=== PATIENT | female | born 1965 | race Caucasian/White ===

== ENCOUNTER 2023-06-21 05:09 | Observation (INO) ==
--- NOTE | 2023-05-24 16:03 | PAT Medication Instructions ---
Medication Instructions Date of Service May 24, 2023 Home Medications Medication Instructions Recorded sumatriptan succinate 100 mg tablet 100 mg PO .COMPLEX #60 tabs 12/16/22 tamsulosin 0.4 mg capsule (Flomax) 0.4 mg PO DAILY PRN kidney stone 12/16/22 #30 caps amitriptyline 25 mg tablet 25 mg PO HS #90 tabs 02/15/23 cyclobenzaprine 5 mg tablet 5 mg PO TID PRN muscle spasm #60 02/15/23 tabs diclofenac potassium 50 mg tablet 50 mg PO BID PRN pain #60 tabs 02/15/23 metoprolol tartrate 25 mg tablet 25 mg PO BID #180 tabs 02/15/23 metoprolol tartrate 50 mg tablet 50 mg PO BID #180 tabs 02/15/23 sumatriptan succinate 100 mg tablet 100 mg PO .COMPLEX tamsulosin 0.4 mg capsule (Flomax) 0.4 mg PO DAILY PRN kidney stone amitriptyline 25 mg tablet 25 mg PO HS cyclobenzaprine 5 mg tablet 5 mg PO TID PRN muscle spasm diclofenac potassium 50 mg tablet 50 mg PO BID PRN pain metoprolol tartrate 25 mg tablet 25 mg PO BID metoprolol tartrate 50 mg tablet 50 mg PO BID amlodipine 5 mg tablet 5 mg PO QAM atorvastatin 40 mg tablet 20 mg PO QAM gabapentin 300 mg capsule 300 mg PO TID ASK your surgeon for instructions diclofenac potassium 50 mg tablet 50 mg PO BID PRN pain Take morning of surgery With a small sip of water, OTHERWISE NOTHING TO EAT OR DRINK AFTER MIDNIGHT: sumatriptan succinate 100 mg tablet 100 mg PO .COMPLEX (if needed) tamsulosin 0.4 mg capsule (Flomax) 0.4 mg PO DAILY PRN kidney stone (if needed) cyclobenzaprine 5 mg tablet 5 mg PO TID PRN muscle spasm (if needed) metoprolol tartrate 25 mg tablet 25 mg PO BID metoprolol tartrate 50 mg tablet 50 mg PO BID amlodipine 5 mg tablet 5 mg PO QAM atorvastatin 40 mg tablet 20 mg PO QAM gabapentin 300 mg capsule 300 mg PO TID Take evening before surgery sumatriptan succinate 100 mg tablet 100 mg PO .COMPLEX (if needed) tamsulosin 0.4 mg capsule (Flomax) 0.4 mg PO DAILY PRN kidney stone (if needed) amitriptyline 25 mg tablet 25 mg PO HS cyclobenzaprine 5 mg tablet 5 mg PO TID PRN muscle spasm (if needed) metoprolol tartrate 25 mg tablet 25 mg PO BID metoprolol tartrate 50 mg tablet 50 mg PO BID gabapentin 300 mg capsule 300 mg PO TID Other Notes If you have any questions please call us at [phone] or [phone] or [phone] or [phone]
--- NOTE | 2023-05-30 13:44 | Anesthesiology Consultation ---
Date of Service May 30, 2023 Assessment & Plan (1) Encounter for pre-operative examination: - Infectious disease screening: Per assessment on 05/30/23: No known infectious disease contacts or current infectious disease symptoms. No noted recent Covid positive test result. - Patient acceptable risk for surgery pending surgeon-ordered PCP preop evaluation ([facility], later [facility]). Chart Review Chart Review: Patient seen in Pre Admission Testing History Surgery Operation Date: 06/21/23 12:50 Proposed Procedures p C5-C6 and C6-C7 Anterior Cervical Discectomy and Fusion, Spinal Cord Monitoring - Clifford Falk DO Height/Weight Height: 5 ft 6 in Weight: 84.9 kg Allergies Allergy/AdvReac Type Severity Reaction Status Date / Time erythromycin base Allergy Intermediate Rash Verified 05/30/23 11:26 Macrolide Antibiotics Allergy Mild GI upset Verified 05/30/23 11:26 amoxicillin Allergy Unknown Rash Verified 05/30/23 11:26 clarithromycin AdvReac Unknown GI symptoms Verified 05/30/23 13:40 Medications Home Medications Medication Instructions Recorded Confirmed Last Taken sumatriptan succinate 100 mg tablet 100 mg PO .COMPLEX #60 tabs 12/16/22 05/24/23 Unknown tamsulosin 0.4 mg capsule (Flomax) 0.4 mg PO DAILY PRN kidney stone 12/16/22 05/24/23 Unknown #30 caps amitriptyline 25 mg tablet 25 mg PO HS #90 tabs 02/15/23 05/24/23 Unknown cyclobenzaprine 5 mg tablet 5 mg PO TID PRN muscle spasm #60 02/15/23 05/24/23 Unknown tabs diclofenac potassium 50 mg tablet 50 mg PO BID PRN pain #60 tabs 02/15/23 05/24/23 Unknown metoprolol tartrate 25 mg tablet 25 mg PO BID #180 tabs 02/15/23 05/24/23 Unknown metoprolol tartrate 50 mg tablet 50 mg PO BID #180 tabs 02/15/23 05/24/23 Unknown amlodipine 5 mg tablet 5 mg PO QAM 05/24/23 05/24/23 Unknown atorvastatin 40 mg tablet 20 mg PO QAM 05/24/23 05/24/23 Unknown gabapentin 300 mg capsule 300 mg PO TID 05/24/23 05/24/23 Unknown Past Medical History Medical History (Updated 05/30/23 @ 14:21 by Meme Mcadams) DDD (degenerative disc disease), cervical Dyslipidemia Gastroparesis History of atrial fibrillation Episode 15+ years ago > unremarkable subsequent cardiac workup including stress test per patient, cardiology initiated/rec'd BB (AC not rec'd) and advised to f/u PRN per patient. No known recurrences/issues since. NSR on preop ECG 05/30/23. History of kidney stones History of migraine Hypertension Osteoarthritis Tinnitus Past Family History Family History Father Diabetes Myocardial infarction COPD (chronic obstructive pulmonary disease) Hypertension Aunt Breast cancer Grandmother (Paternal) Diabetes Grandfather (Paternal) Diabetes Mother Hypercholesteremia Sister Non-Hodgkin lymphoma Slow to wake up after anesthesia Denies family history of Ovarian cancer Prostate cancer Colorectal cancer Past Surgical History Surgical History H/O shoulder surgery Right H/O wrist surgery Right History of colonoscopy History of D&C History of esophagogastroduodenoscopy (EGD) History of mandibular surgery Hx TMJ History of total abdominal hysterectomy and bilateral salpingo-oophorectomy History of wisdom tooth extraction Past Anesthesia History No Hx of Anesthesia Complications * Sister: slow to wake History of PONV No Hx of PONV and Hx of Motion Sickness STOP BANG Total 4 Social History Smoking Status: Current some day smoker Do You Dip or Chew Tobacco: No Smoking End Date: Quit early 05/2023, Hx tobacco use x 30+ years Hx Alcohol Use: No (RARE intake. ) Hx Substance Use: No substance use type: does not use Review of Systems Hx snoring. No witnessed apneic events. Patient denies chest pain, shortness of breath, dyspnea on exertion, reflux, cough, wheezing, palpitations. Physical Exam Vital Signs BP 130/85 P 69 TEMP 97.7 SP02 96%RA RESP 16 Physical Decreased cervical extension range of motion. Full TMJ range of motion. TMD 3.5 finger breaths Mallampati Score 2 Dentition: missing sides/molars, + caps Lungs: clear throughout to auscultation Cardiac: regular rate and rhythm, no murmurs noted Spine: normal Carotid arteries: negative bruit Extremities: no LE edema Lab Results Anesthesia Preop Results Results Anesthesia Widget: WBC 6.72 K/ul (4.8-10.8) 05/30/23 Hgb 14.1 g/dl (12.0-16.0) 05/30/23 Hct 42.5 % (37.0-47.0) 05/30/23 Plt 213 K/uL (130-400) 05/30/23 Na 140 mmol/L (136-145) 05/30/23 K 3.8 mmol/L (3.5-5.1) 05/30/23 Cl 108 mmol/L (98-107) H 05/30/23 CO2 28 mmol/L (21-32) 05/30/23 BUN 13 mg/dl (6-23) 05/30/23 Creat 0.71 mg/dl (0.6-1.2) 05/30/23 Glucose Level 90 mg/dl (70-99(Fasting)) 05/30/23 PT 11.1 Seconds (9.0-12.0) 05/30/23 PTT 27 Seconds (21-31) 05/30/23 INR 1.0 (0.9-1.1) 05/30/23 Urine Color Yellow 05/30/23 Urine Appearance Cloudy (Clear) A 05/30/23 Urine pH 5.5 (4.5-7.5) 05/30/23 Urine Specific [place] 1.026 (1.000-1.030) 05/30/23 Urine Protein Negative (Negative) 05/30/23 Urine Glucose (UA) Negative (Negative) 05/30/23 Urine Ketones Negative (Negative) 05/30/23 Urine Blood 1+ (Negative) H 05/30/23 Urine Nitrite Negative (Negative) 05/30/23 Urine Bilirubin Negative (Negative) 05/30/23 Urine Urobilinogen Negative (Negative) 05/30/23 Urine Leukocyte Esterase 2+ (Negative) H 05/30/23 Urine WBC (Auto) >30 /hpf (0-5) H 05/30/23 Urine RBC (Auto) 5-10 /hpf (0-4) H 05/30/23 Urine Hyaline Casts (Auto) 1-5 /lpf (0-5) 05/30/23 Urine Epithelial Cells (Auto) >30 /lpf (0-5) H 05/30/23 Urine Bacteria (Auto) Negative (Negative) 05/30/23 Blood Type O Positive 05/30/23 Antibody Screen NEGATIVE 05/30/23 Testing Laboratory Results Urine culture (05/30/23)- preliminary report with pin-point growth present, reincubating (surgeon's office made aware) Electrocardiogram Date: 05/30/23 NSR at 63bpm. "Normal ECG" Chest X-Ray Date: 05/30/23 Findings: + NAD
[2023-06-21] MEDS: CeleBREX 200 MG CAP PO SCH (05:48)
[2023-06-21] MEDS: GABAPENTIN 600 MG DOSE PO SCH (05:48)
[2023-06-21] MEDS: LR 15ML/HR IV SCH (05:48)
[2023-06-21] MEDS: ACETAMINOPHEN 500 MG TAB PO SCH (05:48)
[2023-06-21] MEDS: VANCOMYCIN HCL 1,250 MG in SODIUM CHLORIDE 0.9% 250 ML IV SCH (05:49)
[2023-06-21] MEDS: LR 60ML/HR IV SCH (05:50)
[2023-06-21] MEDS ORDERED: DEXAMETHASONE SOD INJ 4 MG/ML VIAL ONE (06:49)
[2023-06-21] MEDS ORDERED: PROPOFOL IV EMULSION 10 MG/ML 20 ML VIAL IV ONE (06:49)
[2023-06-21] MEDS ORDERED: ONDANSETRON INJ 2 MG/ML 2 ML VIAL ONE (06:49)
[2023-06-21] MEDS ORDERED: ROCURONIUM BROMIDE 10 MG/ML 5 ML VIAL IV ONE (06:49)
[2023-06-21] MEDS ORDERED: LIDOCAINE 2% 2 ML VIAL/AMP(20MG/ML) INFIL ONE (06:49)
[2023-06-21] MEDS ORDERED: GLYCOPYRROLATE 0.2 MG/ML VIAL ONE (06:49)
[2023-06-21] MEDS ORDERED: MIDAZOLAM HCL 1 MG/ML 2ML VIAL ONE (06:50)
[2023-06-21] MEDS ORDERED: fentaNYL citrate PF 100 MCG/2 ML VIAL ONE (06:50)
[2023-06-21] MEDS ORDERED: SUGAMMADEX SODIUM 200 MG/2 ML VIAL IV ONE (06:55)
[2023-06-21] MEDS ORDERED: ePHEDrine sulfate 50 MG/ML AMP IV PRN (06:57)
[2023-06-21] MEDS ORDERED: ATROPINE SULFATE 0.1 MG/ML 10ML SYR IV PRN (06:57)
[2023-06-21] MEDS ORDERED: ONDANSETRON INJ 2 MG/ML 2 ML VIAL IV PRN (06:57)
[2023-06-21] MEDS ORDERED: PROMETHAZINE HCL 6.25 MG in SODIUM CHLORIDE 0.9% 50 ML IV PRN (06:57)
--- NOTE | 2023-06-21 07:43 | History & Physical Bridge Note ---
Date of Service June 21, 2023 History & Physical Bridge Note I have examined the patient, reviewed the History & Physical and in the interval since the performance of the History & Physical I have noted the following changes of clinical significance: no changes noted
--- NOTE | 2023-06-21 07:44 | History & Physical Report ---
Date of Service June 21, 2023 Assessment & Plan (1) Cervical radiculopathy: Plan: Anterior cervical discectomy and fusion C5-C6 and C6-C7 History of Present Illness Chief Complaint: Neck and arm pain Primary Care Provider: Krista Marcum DO This is a 57-year-old female presents chronic system Pain of failed course of nonoperative care is here for surgical invention. Allergies Allergy/AdvReac Type Severity Reaction Status Date / Time erythromycin base Allergy Intermediate Rash Verified 06/21/23 05:36 Macrolide Antibiotics Allergy Mild GI upset Verified 06/21/23 05:36 amoxicillin Allergy Unknown Rash Verified 06/21/23 05:36 clarithromycin AdvReac Unknown GI symptoms Verified 06/21/23 05:36 Home Medications Medication Instructions Recorded Confirmed Type sumatriptan succinate 100 mg tablet 100 mg PO .COMPLEX #60 tabs 12/16/22 06/21/23 Rx tamsulosin 0.4 mg capsule (Flomax) 0.4 mg PO DAILY PRN kidney stone 12/16/22 06/21/23 Rx #30 caps amitriptyline 25 mg tablet 25 mg PO HS #90 tabs 02/15/23 06/21/23 Rx cyclobenzaprine 5 mg tablet 5 mg PO TID PRN muscle spasm #60 02/15/23 06/21/23 Rx tabs diclofenac potassium 50 mg tablet 50 mg PO BID PRN pain #60 tabs 02/15/23 06/21/23 Rx metoprolol tartrate 25 mg tablet 25 mg PO BID #180 tabs 02/15/23 06/21/23 Rx metoprolol tartrate 50 mg tablet 50 mg PO BID #180 tabs 02/15/23 06/21/23 Rx amlodipine 5 mg tablet 5 mg PO QAM 05/24/23 06/21/23 History atorvastatin 40 mg tablet 20 mg PO QAM 05/24/23 06/21/23 History gabapentin 300 mg capsule 300 mg PO TID 05/24/23 06/21/23 History Past Med/Surg History Medical History DDD (degenerative disc disease), cervical Osteoarthritis History of kidney stones Tinnitus History of migraine History of atrial fibrillation Episode 15+ years ago > unremarkable subsequent cardiac workup including stress test per patient, cardiology initiated/rec'd BB (AC not rec'd) and advised to f/u PRN per patient. No known recurrences/issues since. NSR on preop ECG 05/30/23. Dyslipidemia Gastroparesis Hypertension Surgical History History of D&C History of esophagogastroduodenoscopy (EGD) History of colonoscopy History of wisdom tooth extraction History of total abdominal hysterectomy and bilateral salpingo-oophorectomy H/O wrist surgery Right H/O shoulder surgery Right History of mandibular surgery Hx TMJ Family History Father Diabetes Myocardial infarction COPD (chronic obstructive pulmonary disease) Hypertension Aunt Breast cancer Grandmother (Paternal) Diabetes Grandfather (Paternal) Diabetes Mother Hypercholesteremia Sister Non-Hodgkin lymphoma Slow to wake up after anesthesia Denies family history of Ovarian cancer Prostate cancer Colorectal cancer Social History Smoking Status: Current some day smoker Tobacco Type: Cigarettes Age Started Using Tobacco: 22; Smoking End Date: Quit early 05/2023, Hx tobacco use x 30+ years; Second Hand Exposure: Yes; Do You Dip or Chew Tobacco: No; Tobacco Cessation Education Requested by Patient: No Hx Alcohol Use: No (RARE intake. ) Hx Substance Use: No Preferred Language: Italian Communication Ability: Effective Visual Impairment: No Limitations Hearing Ability: Normal Manager Qa Required: No Beliefs That Will Affect Care: None marital status: Current Living Situation: Alone current occupational status: employed current occupation: DME supplier. How many Children do You have: 3 How many Children do You have Comment: ONE CHILD Feels Safe at Home: Yes Safety Concerns: Feels Safe At This Time Childhood Exposure to Second-Hand Smoke: No Diet: regular Diet Comment: regular caffeine: Yes (coffee x 1 per day.) during the past year weight has: remained stable Dental Care, Regularly: Yes Physical Activity Frequency: Daily Seatbelt Use: always Sunscreen Use: Yes Assistive Devices: Glasses Physical Exam Physical Exam: Patient is alert and oriented Heart regular rhythm Lungs clear Results & Data Results & Data Vital Signs (Past 12 Hours) Vital Signs Temp Pulse Resp BP Pulse Ox O2 Del Method 06/21/23 05:42 36.7 C 80 20 147/95 H 95 Room Air
[2023-06-21] MEDS: ceFAZolin 330 MG/ML 1 GM VIAL ONE (08:30)
--- OUTSIDE RECORDS SUMMARY | 2023-06-21 08:59 | External Medical Summary | Summary of Care ---
Author Name Unknown Organization [facility] Address [address] [place] [address] Phone [phone] Care Team Providers Care Condemnation Engineer Name Role Phone Misa Castanon MD Primary Care Provi tanya Reason for Visit * Reason Comments Pre-Op Testing Patient is here toda y for pre-op clearance for spine surgery with Dr. Marshall Falk ([facility]) on 06/21/2023. Patient says she already had lab work and EKG done at her pre-op for [facility]. Encounter Details Date Type Department Care Team (Late st Contact Info) Description 06/10/2023 8:40 AM EDT Office Visit [address] [phone] Misa Castanon MD [address] [place] [phone] Preop examination*; DDD (degenerative disc disease), cervical; Cervical radiculopathy; Myelomalacia of cervical cord (HCC); HTN, goal below 140/90 Allergies Active Allergy Reactions Criticality Noted Date Comments Amoxicillin 06/23/2006 Rash Erythromycin 06/23/2006 documented as of this encounter (statuses as of 06/14/2023) Medications Medication Sig Dispensed Refills Start Date End Date Status IMITREX 50 MG PO TABSIndications:Art myah with aura One pill by mouth at onset of migraine. May repeat every 2 hours but not more than 4 tablets in 24 hours. 6 Tab 2 11/13/2013 Active LIPITOR 10 MG PO TABSIndications:HTN , goal below 130/80 one tab by mouth daily 30 Tab 5 11/22/2013 Active metoprolol tartrate (LOPRESSOR) 50 MG TabletIndications:H TN, goal below 130/80 TAKE ONE TABLET TWO TIMES DAILY ALONG WITH 25MG 180 Tab 1 03/03/2015 Active metoprolol (LOPRESSOR) 25 MG TabletIndications:H TN, goal below 140/90 1 TABLET TWICE DAILY TAKEN WITH THE 50MG PILLS. 180 Tab 1 03/03/2015 Active amLODIPine (NORVASC) 5 MG Tablet 1 TABLET DAILY 90 Tab 1 06/05/2015 Active Tamsulosin HCl 0.4 MG Oral Capsule (Flomax) Take 1 Capsule by mouth daily as needed (kidney stones). 0 Active Acetaminophen 500 MG Oral Tablet (Tylenol)Indication s:DDD (degenerative disc disease), cervical,Cervical radiculopathy Take 2 Tablets by mouth in the morning and 2 Tablets at noon and 2 Tablets in the evening. 180 Tablet 3 02/22/2023 Active Gabapentin 300 MG Oral Capsule (Neurontin)Indicati ons:Cervical radiculopathy,DDD (degenerative disc disease), cervical Take 1 Capsule by mouth in the morning and 1 Capsule at noon and 1 Capsule before bedtime. 90 Capsule 3 04/13/2023 Active Cyclobenzaprine HCl 10 MG Oral Tablet (Flexeril)Indicatio ns:Spasm of muscle Take 1 Tablet by mouth 3 times a day as needed for Pain, Severe. 60 Tablet 2 04/15/2023 Active Diclofenac Potassium 50 MG Oral Tablet Take 1 Tablet by mouth in the morning and 1 Tablet before bedtime. 0 06/10/2023 Discontinue d(Patient preference/ discontinua tion) Benzonatate 100 MG Oral CapsuleIndications: Viral URI Take 1 Capsule by mouth 3 times a day as needed for Cough. 30 Capsule 1 04/13/2023 06/10/2023 Discontinue d(Medicatio n List Clean Up) guaiFENesin ER 600 MG Oral Tablet Extended Release 12 Hour (Mucinex)Indication s:Viral URI Take 1 Tablet by mouth 2 times a day as needed for Congestion. Take with plenty of water. Do not cut, crush or chew 40 Tablet 2 04/13/2023 06/10/2023 Discontinue d(Medicatio n List Clean Up) predniSONE 10 MG Oral Tablet (Deltasone)Indicati ons:Cervical radiculopathy,Myelo malacia of cervical cord (HCC) Take 5 tabs for 2 days, 4 tabs for 2 days, 3 tabs for 2 days, 2 tabs for 2 days 1 tab for 2 days 30 Tablet 0 04/15/2023 06/10/2023 Discontinue d(Medicatio n List Clean Up) documented as of this encounter (statuses as of 06/14/2023) Active Problems Problem Noted Date Diagnosed Date Myelomalacia of cervical cord 04/13/2023 Cervical radiculopathy 04/13/2023 History of nephrolithiasis 02/22/2023 DDD (degenerative disc disease), cervical 2022 Lumbar degenerative disc disease 02/22/2023 Gastroparesis 02/22/2023 Dyslipidemia, goal LDL below 100 02/18/2014 HTN, goal below 140/90 07/14/2010 Migraine with aura 10/22/2008 documented as of this encounter (statuses as of 06/14/2023) Resolved Problems Problem Noted Date Diagnosed Date Resolved Date Palpitations 08/17/2010 02/22/2023 Gastritis and gastroduodenitis 10/08/2008 02/22/2023 Atrial fibrillation 02/19/20 14 documented as of this encounter (statuses as of 06/14/2023) Immunizations Name Administration Dates Next Due Pneumococcal Polysaccharide PPV23 (Pneumovax) 09/19/2008(Deferred: Patient Refused) Seasonal Influenza, Split, I IV3, With Preserve, Inj 02/11/2014 TDAP (age 11 and older)(Adacel) 09/19/2008 documented as of this encounter Social History Tobacco Use Types Packs/Day Years Used Date Smoking Tobacco: Former Cigarettes 0.3 16 Smokeless Tobacco: Never Tobacco Cessation:Counseling Given: Not Answered Comments:07/30/10 down to 3 cigaretts a day Alcohol Use Standard Drinks/Week Comments Not Currently 0 (1 standard drink = 0.6 oz pur e alcohol) 1 glass of wine occ Hunger Vital Sign Answer Date Recorded Within the past 12 months, y ou worried that your food would run out before you got the money to buy more. Patient declined Within the past 12 months, t he food you bought just didn't last and you didn't have money to get more. Patient declined 06/2023 Sex and Gender Information Value Date Recorded Sex Assigned at Female 03/31/2023 9:54 AM EST Gender Identity Female 03/31/2023 9:54 AM EST Sexual Orientation Straight 03/31/2023 9: 54 AM EST Job Start Date Occupation Industry Not on file Not on file Not on file documented as of this encounter Last Filed Vital Signs Vital Sign Reading Time Taken Comments Blood Pressure 126/84 06/10/2023 9:09 AM EDT Pulse 54 06/10/2023 8:49 AM EDT Temperature 36.4 C (97.5 F) 06/10/2023 8:49 AM ED T Respiratory Rate 20 06/10/2023 8:49 AM EDT Oxygen Saturation 99% 06/10/2023 8:49 AM EDT Inhaled Oxygen Concentration - - Weight 85.6 kg (188 lb 12.8 oz) 06/10/2023 8:49 AM EDT Height 170.2 cm (5' 7") 06/10/2023 8:49 AM EDT Body Mass Index 29.57 06/10/2023 8:49 AM EDT documented in this encounter Progress Notes * Misa Castanon MD - 06/10/2023 8:40 AM EDT Images from the original note were not included. Pre-Operative Medical Evaluation Procedure Information Type of Surgery: Anterior cervical discectomy and fusion C5/6 and C6/7 Referring Physician / Surgeon: Marshall Falk MD Date of procedure: 06/21/2023 Brief History of Present Illness: 57 year old female with history of hypertension, dyslipidemia, gastroparesis, and cervical DDD and radiculopathy who presents for pre op exam. Scheduled for anterior cervical discectomy and fusion C5/6 and C6/7 on 06/21/23 with [facility] [place]. BP is well controlled on current meds. Quit smoking 3 weeks ago. Had labs, EKG, chest xray done at [facility] through [facility] Medical History Problem List: Myelomalacia of cervical cord (HCC) (04/13/2023) Cervical radiculopathy (04/13/2023) History of nephrolithiasis (02/22/2023) DDD (degenerative disc disease), cervical (02/22/2023) Lumbar degenerative disc disease (02/22/2023) Gastroparesis (02/22/2023) Dyslipidemia, goal LDL below 100 (02/18/2014) Palpitations (08/17/2010) HTN, goal below 140/90 (07/14/2010) Migraine with aura (10/22/2008) Gastritis and gastroduodenitis (10/08/2008) Atrial fibrillation (HCC) Current Medications Cyclobenzaprine HCl 10 MG Oral Tablet (Flexeril), 10 mg, Oral, TID PRN Gabapentin 300 MG Oral Capsule (Neurontin), 300 mg, Oral, TID(AM/NOON/HS) Acetaminophen 500 MG Oral Tablet (Tylenol), 1,000 mg, Oral, TID Tamsulosin HCl 0.4 MG Oral Capsule (Flomax), 0.4 mg, Oral, Daily PRN amLODIPine (NORVASC) 5 MG Tablet, 1 TABLET DAILY metoprolol (LOPRESSOR) 25 MG Tablet, 1 TABLET TWICE DAILY TAKEN WITH THE 50MG PILLS. metoprolol tartrate (LOPRESSOR) 50 MG Tablet, TAKE ONE TABLET TWO TIMES DAILY ALONG WITH 25MG LIPITOR 10 MG PO TABS, one tab by mouth daily IMITREX 50 MG PO TABS, One pill by mouth at onset of migraine. May repeat every 2 hours but not more than 4 tablets in 24 hours. Allergies: Amoxicillin and Erythromycin Past Medical History: has a past medical history of Atrial fibrillation (HCC), Benign neoplasm of colon (12/28/2010), Gastroparesis, Hypertention, malignant, with acute intensive management, Reflux esophagitis, and Temporomandibular joint disorders, unspecified. Past Surgical History: has a past surgical history that includes dilation and curettage (d&c); EGD, Flexible, w/Biopsy(07/07/06); vaginal hysterectomy (02-23-10); and Colonoscopy w/ Biopsy (Rectum) (12/28/10). Social History: reports that she has quit smoking. Her smoking use included cigarettes. She has a 4.8 pack-year smoking history. She has never used smokeless tobacco. She reports that she does not currently use alcohol. She reports that she does not use drugs. Family History: family history includes Cancer in her grandfather (maternal); Diabetes in her father and grandmother (paternal); Heart Disorder in her grandmother (paternal) and sister; No Past Hx in her none. Anesthesia History Type of Anesthesia: General Endotracheal and Caudal block Anesthesia reaction: No History of surgical complications: None Personal history of venous thromboembolic disease: None Physical Exam Vitals: 06/10/23 0849 06/10/23 0909 Temp: 36.4 C (97.5 F) Pulse: 54 Resp: 20 SpO2: 99% BP: 152/92 126/84 BMI: 29.56 Physical Exam Vitals and nursing note reviewed. Constitutional: General: She is not in acute distress. Appearance: Normal appearance. HENT: Head: Normocephalic and atraumatic. Nose: Nose normal. Mouth/Throat: Mouth: Mucous membranes are moist. Pharynx: Oropharynx is clear. Eyes: Conjunctiva/sclera: Conjunctivae normal. Cardiovascular: Rate and Rhythm: Normal rate and regular rhythm. Pulses: Normal pulses. Heart sounds: Normal heart sounds. No murmur heard. Pulmonary: Effort: Pulmonary effort is normal. No respiratory distress. Breath sounds: Normal breath sounds. Skin: General: Skin is warm and dry. Capillary Refill: Capillary refill takes less than 2 seconds. Findings: No rash. Neurological: General: No focal deficit present. Mental Status: She is alert and oriented to person, place, and time. Mental status is at baseline. Psychiatric: Mood and Affect: Mood normal. Behavior: Behavior normal. Labs reviewed and are significant for: No significant abnormalities EKG by my review is significant for: normal sinus rhythm without ST changes Surgical Risk Scoring Revised Cardiac Risk Index (RCRI) High-risk type of surgery (examples include vascular and any open intraperitoneal or intrathoracic procedures): 0=No History of ischemic heart disease (history of myocardial infarction or positive exercise test, current compliant of chest pain considered to be secondary to myocardia ischemia, use of nitrate therapy, or ECG with pathological Q waves; do not count prior coronary revascularization procedure unless one of the other criteria for ischemic heart disease is present): 0=No History of heart failure: 0=No History of cerebrovascular disease: 0=No Diabetes mellitus requiring treatment with insulin: 0=No Preoperative serum creatinine >2.0 mg/dL (177 micromol/L): 0=No Pt has revised cardiac index score of: No Risk Factors- 0.4% (95% CI: 0.1-0.8) Screening for Obstructive Sleep Apnea (STOP-BANG) Do you Snore loudly? 1=Yes Do you often feel Tired, Fatigued, or Sleep? 1=Yes Has anyone Observed you Stop Breathing or Choking/Gasping during sleep? 0=No Do you have or are you being treated for High Blood Pressure? 1=Yes BMI over 35? 0=No Age older than 50? 1=Yes Neck size large? (For males - 17 inches or larger, For females - 16 inches or larger) 0=No Male? 0=No Score 0-2:low risk GABINO, 3-4: intermediate risk of GABINO, 5-8: high risk GABINO 4 Assessment and Plan Preop examination Cleared to proceed with surgery DDD (degenerative disc disease), cervical Cervical radiculopathy Myelomalacia of cervical cord (HCC) HTN, goal below 140/90 At goal, no changes Functional Assessment They are able to walk up a flight of stairs, walk two blocks at a moderate pace, do heavy house work like vacuuming, and grocery shop. The patient's functional status is good (greater than 4 METS). 1 MET: 4 METs: 4-10 METs: Can take care of self, such as eat, dress or use the toilet. Can walk to block or go up a flight of steps. Can do heavy house work. Surgical Risk Assessment Patient is low medical risk for the listed procedure. Medication adjustments: None Additional consults or testing: None documented in this encounter Nursing Notes * Martha Beckett LPN - 06/10/2023 8:48 AM EDT The patient has been properly identified by confirmation of name and date of . Chief Complaint Patient presents with Pre-Op Testing Patient is here today for pre-op clearance for spine surgery with Dr. Marshall Falk ([facility]) on 06/21/2023. Patient says she already had lab work and EKG done at her pre-op for [facility]. Patient has been verbally educated on the need or importance of Colon Cancer Screening and Immunizations: tdap, hep B, pneumo, shingles and has declined topic(s) due to upcoming surgery. documented in this encounter Plan of Treatment Upcoming Encounters Date Type Department Care Team ([facility] st Contact Info) Description 07/13/2023 8:00 AM EDT Office Visit Family [address] [phone] Misa Castanon MD [address] [place] [phone] Health Maintenance Due Date Last Done Comments Depression Screening 1976 Hepatitis B (1 of 3 - 19+ 3-dose series) 09/28/1983 Cologuard 2009 Fecal Occult Blood Test 2009 Sigmoidoscopy 2009 Mammogram 10/09/2010 10/09/2009, 09/20/2008 Zoster Vaccines (1 of 2) 2014 Albumin/Creatinine Ratio 02/11/2017 014, 02/01/2013, 10/26/2011, Additional history exists DTaP,Tdap,and Td Vaccines (2 - Td or Tdap) 09/19/2018 09/19/2008 Lipid Panel 02/18/2019 02/18/2014, 07/14/2010 Colonoscopy 12/28/2020 12/28/2010 Colorectal Cancer Screening 12/28/2020 COVID-19 Vaccine ( - season) 2022 Influenza Vaccine (FLU shot) (#1) 2022 02/11/2014 GFR 05/29/2024 05/30/2023, 01/26, 02/01/2013, Additional history exists Diabetes Screening 05/29/2026 05/30/2023, 1 04/13/2013, 02/01/2013, Additional history exists Pap Smear Discontinued 10/02/2009, 10/2009, 09/11/2008, Additional history exists GARDASIL-HPV IMMUNIZATION SERIES Aged Out No longer eligible based on patient's age to complete this topic MENINGOCOCCAL (MENACTRA/MENVEO) Aged Out No longer eligible based on patient's age to complete this topic Pneumococcal Vaccine: Pediatrics (0 to 5 Years) and At-Risk Patients (6 to 64 Years) Aged Out No longer eligible based on patient's age to complete this topic documented as of this encounter Medical Devices Not on filedocumented as of this encounter Visit Diagnoses Diagnosis Preop examination- Primary Preoperative examination, unspecified DDD (degenerative disc disease), cervical Degeneration of cervical intervertebral disc Cervical radiculopathy Brachial neuritis or radiculitis nos Myelomalacia of cervical cord (HCC) Other myelopathy HTN, goal below 140/90 Unspecified essential hypertension documented in this encounter Care Teams Condemnation Engineer Relationship Specialty Start Date End Date Misa Castanon MD [address] [place] [phone] PCP - General Family Medicine 04/05/23 documented as of this encounter
--- OUTSIDE RECORDS SUMMARY | 2023-06-21 08:59 | External Medical Summary | Summary of Care ---
Author Name Unknown Organization [facility] Address [address] [place] [address] Phone [phone] Care Team Providers Care Photoengraver Name Role Phone Misa Castanon MD Primary Care Provi tanya Encounter Details Date Type Department Care Team (Late st Contact Info) Description 05/30/2023 Result Scan Unspecified Department <No scans attached> Allergies Active Allergy Reactions Criticality Noted Date Comments Amoxicillin 06/23/2006 Rash Erythromycin 06/23/2006 documented as of this encounter (statuses as of 06/13/2023) Medications Medication Sig Dispensed Refills Start Date End Date Status IMITREX 50 MG PO TABSIndications:Migrai ne with aura One pill by mouth at onset of migraine. May repeat every 2 hours but not more than 4 tablets in 24 hours. 6 Tab 2 11/13/2013 Active LIPITOR 10 MG PO TABSIndications:HTN, goal below 130/80 one tab by mouth daily 30 Tab 5 11/22/2013 Active metoprolol tartrate (LOPRESSOR) 50 MG TabletIndications:HTN, goal below 130/80 TAKE ONE TABLET TWO TIMES DAILY ALONG WITH 25MG 180 Tab 1 03/03/2015 Active metoprolol (LOPRESSOR) 25 MG TabletIndications:HTN, goal below 140/90 1 TABLET TWICE DAILY TAKEN WITH THE 50MG PILLS. 180 Tab 1 03/03/2015 Active amLODIPine (NORVASC) 5 MG Tablet 1 TABLET DAILY 90 Tab 1 06/05/2015 Active Tamsulosin HCl 0.4 MG Oral Capsule (Flomax) Take 1 Capsule by mouth daily as needed (kidney stones). 0 Active Acetaminophen 500 MG Oral Tablet (Tylenol)Indications:D DD (degenerative disc disease), cervical,Cervical radiculopathy Take 2 Tablets by mouth in the morning and 2 Tablets at noon and 2 Tablets in the evening. 180 Tablet 3 02/22/2023 Active Gabapentin 300 MG Oral Capsule (Neurontin)Indications :Cervical radiculopathy,DDD (degenerative disc disease), cervical Take 1 Capsule by mouth in the morning and 1 Capsule at noon and 1 Capsule before bedtime. 90 Capsule 3 04/13/2023 Active Cyclobenzaprine HCl 10 MG Oral Tablet (Flexeril)Indications: Spasm of muscle Take 1 Tablet by mouth 3 times a day as needed for Pain, Severe. 60 Tablet 2 04/15/2023 Active documented as of this encounter (statuses as of 06/13/2023) Active Problems Problem Noted Date Diagnosed Date Myelomalacia of cervical cord 04/13/2023 Cervical radiculopathy 04/13/2023 History of nephrolithiasis 02/22/2023 DDD (degenerative disc disease), cervical 2022 Lumbar degenerative disc disease 02/22/2023 Gastroparesis 02/22/2023 Dyslipidemia, goal LDL below 100 02/18/2014 HTN, goal below 140/90 07/14/2010 Migraine with aura 10/22/2008 documented as of this encounter (statuses as of 06/13/2023) Resolved Problems Problem Noted Date Diagnosed Date Resolved Date Palpitations 08/17/2010 02/22/2023 Gastritis and gastroduodenitis 10/08/2008 02/22/2023 Atrial fibrillation 02/19/20 14 documented as of this encounter (statuses as of 06/13/2023) Immunizations Name Administration Dates Next Due Pneumococcal Polysaccharide PPV23 (Pneumovax) 09/19/2008(Deferred: Patient Refused) Seasonal Influenza, Split, I IV3, With Preserve, Inj 02/11/2014 TDAP (age 11 and older)(Adacel) 09/19/2008 documented as of this encounter Social History Tobacco Use Types Packs/Day Years Used Date Smoking Tobacco: Every Day Cigarettes 0.3 16 Smokeless Tobacco: Never Comments:07/30/10 down to 3 ci garetts a day Alcohol Use Standard Drinks/Week Comments Yes 0 (1 standard drink = 0.6 oz [...] on file documented as of this encounter Plan of Treatment Upcoming Encounters Date Type Department Care Team ([facility] Contact Info) Description 07/13/2023 8:00 AM EDT Office Visit Family [address] [phone] Misa Castanon MD [address] [place] [phone] Health Maintenance Due Date Last Done Comments Depression Screening 1976 Hepatitis B (1 of 3 - 19+ 3-dose series) 09/28/1983 Cologuard 2009 Fecal Occult Blood Test 2009 Sigmoidoscopy 2009 Mammogram 10/09/2010 10/09/2009, 09/20/2008 Zoster Vaccines (1 of 2) 2014 GFR 02/11/2015 05/30/2023, 01/26, 02/01/2013, Additional history exists Albumin/Creatinine Ratio 02/11/2017 014, 02/01/2013, 10/26/2011, Additional history exists Diabetes Screening 02/11/2017 05/30/2023, 1 04/13/2013, 02/01/2013, Additional history exists DTaP,Tdap,and Td Vaccines (2 - Td or Tdap) 09/19/2018 09/19/2008 Lipid Panel 02/18/2019 02/18/2014, 07/14/2010 Colonoscopy 12/28/2020 12/28/2010 Colorectal Cancer Screening 12/28/2020 COVID-19 Vaccine ( season) 2022 Influenza Vaccine (FLU shot) (#1) 2022 02/11/2014 Pap Smear Discontinued 10/02/2009, 10/2009, 09/11/2008, Additional [...] Not on filedocumented as of this encounter Procedures Procedure Name Priority Date/Time Associated Diagnosis Comments EKG SCANNED RESULT 05/30/2023 documented in this encounter Results * EKG SCANNED RESULT (05/30/2023) 05/30/2023 No Physician Data Unknown EKG documented in this encounter Care Teams Photoengraver Relationship Specialty Start Date End Date Misa Castanon MD [address] [place] [phone] PCP - General Family Medicine 04/05/23 documented as of this encounter
--- OUTSIDE RECORDS SUMMARY | 2023-06-21 08:59 | External Medical Summary | Summary of Care ---
Author Name Unknown Organization [facility] Address [address] [place] [address] Phone [phone] Care Team Providers Care Generation Engineering Technologist Name Role Phone Misa Castanon MD Primary Care Provi tanya Reason for Visit * Reason Onset Date Comments MyCode Nonconsent - Not interested at this time 06/10/2023 Encounter Details Date Type Department Care Team (Late st Contact Info) Description 06/10/2023 Orders Only Outcomes Research Department [address], [place] [id number] Erica Flores CHRA MyCode Nonconsent Documentation Allergies Active Allergy Reactions Criticality Noted Date Comments Amoxicillin 06/23/2006 Rash Erythromycin 06/23/2006 documented as of this encounter (statuses as of 06/10/2023) Medications Medication Sig Dispensed Refills Start Date [...] as of this encounter (statuses as of 06/10/2023) Active Problems Problem Noted Date Diagnosed Date Myelomalacia of cervical cord 04/13/2023 Cervical radiculopathy 04/13/2023 History of nephrolithiasis 02/22/2023 DDD (degenerative disc disease), cervical 2022 Lumbar degenerative disc disease 02/22/2023 Gastroparesis 02/22/2023 Dyslipidemia, goal LDL below 100 02/18/2014 HTN, goal below 140/90 07/14/2010 Migraine with aura 10/22/2008 documented as of this encounter (statuses as of 06/10/2023) Resolved Problems Problem Noted Date Diagnosed Date Resolved Date Palpitations 08/17/2010 02/22/2023 Gastritis and gastroduodenitis 10/08/2008 02/22/2023 Atrial fibrillation 02/19/20 14 documented as of this encounter (statuses as of 06/10/2023) Immunizations Name Administration Dates Next Due Pneumococcal Polysaccharide PPV23 (Pneumovax) 09/19/2008(Deferred: Patient Refused) Seasonal Influenza, Split, I IV3, With Preserve, Inj 02/11/2014 TDAP (age 11 and older)(Adacel) 09/19/2008 documented as of this encounter Social History Tobacco Use Types Packs/Day Years Used Date Smoking Tobacco: Former Cigarettes 0.3 16 Smokeless Tobacco: Never Comments:07/30/10 [...] on file documented as of this encounter Progress Notes * Erica Flores CHRA - 06/10/2023 9:15 AM EDT MyCode Nonconsent Documentation Sherryhanny Degroot was approached in the clinic regarding participation in the MyCode Project and did not consent. documented in this encounter Plan of Treatment Upcoming Encounters Date Type Department Care Team ([facility] Contact Info) Description 07/13/2023 8:00 AM EDT Office Visit Family [address] [phone] Misa Castanon MD [address] [place] [phone] Health Maintenance Due Date Last Done Comments Depression Screening 1976 Hepatitis B (1 of 3 - 19+ 3-dose series) 09/28/1983 Cologuard 2009 Fecal Occult Blood Test 2009 Sigmoidoscopy 2009 Mammogram 10/09/2010 10/09/2009, 09/20/2008 Zoster Vaccines (1 of 2) 2014 GFR 02/11/2015 02/11/2014, 09/2012, 10/26/2011, Additional history exists Albumin/Creatinine Ratio 02/11/2017 014, 02/01/2013, 10/26/2011, Additional history exists Diabetes Screening 02/11/2017 02/11/2014, 1 04/03/2012, 10/26/2011, Additional history exists DTaP,Tdap,and Td Vaccines [...] Not on filedocumented as of this encounter Care Teams Generation Engineering Technologist Relationship Specialty Start Date End Date Misa Castanon MD [address] [place] [phone] PCP - General Family Medicine 04/05/23 documented as of this encounter
--- OUTSIDE RECORDS SUMMARY | 2023-06-21 08:59 | External Medical Summary | Summary of Care ---
Author Name Unknown Organization [facility] Address [address] [place] [address] Phone [phone] Care Team Providers Care Ambulatory Analyst Name Role Phone Misa Castanon MD Primary Care Provi tanya Encounter Details Date Type Department Care Team ([facility] st Contact Info) Description 06/13/2023 Orders Only Family Practice [facility] [address] [place] [phone] Misa Castanon MD [address] [place] [phone] Allergies Active Allergy Reactions Criticality Noted Date [...] Upcoming Encounters Date Type Department Care Team (Late st Contact Info) Description 07/13/2023 8:00 AM EDT Office Visit Family [address] [phone] Misa Castanon MD [address] [place] [phone] Health Maintenance Due Date Last Done [...] Procedure Name Priority Date/Time Associated Diagnosis Comments CHEMISTRY-OUTSIDE Routine 05/30/2023 documented in this encounter Results * CHEMISTRY-OUTSIDE (05/30/2023) Not all results display below - see scan for full detail OUTSIDE LAB (SEE SCANNED REPORT) Comment:SEE SCAN - CBCD, PTI NR,UA, CMP, CREATININE-OUTSID E LAB 0.71 0.6 - 1.2 MG/DL OUTSIDE LAB (SEE SCANNED REPORT) EGFR-OUTSIDE LAB 93.9 ML/MIN OUT SIDE LAB (SEE SCANNED REPORT) POTASSIUM-OUTSIDE LAB 3.8 3.5 - 5.1 MMOL/L OUTSIDE LAB (SEE SCANNED REPORT) GLUCOSE-OUTSIDE LAB 90 70 - 99 MG/DL OUTSIDE LAB (SEE SCANNED REPORT) HOURS FASTING OUTSID E LAB (SEE SCANNED REPORT) TRIGLYCERIDES-OUT SIDE LAB OUTSIDE LAB (SEE SCANNED REPORT) CHOLESTEROL-OUTSI DE LAB OUTSIDE LAB (SEE SCANNED REPORT) HDL-OUTSIDE LAB OUTS [facility] LAB (SEE SCANNED REPORT) CHOL/HDL RATIO-OUTSIDE LAB OUTSIDE LA B (SEE SCANNED REPORT) LDL (CALCULATED)-OUTS [facility] LAB OUTSIDE LAB (SEE SCANNED REPORT) LDL (DIRECT MEASURE)-OUTSIDE LAB OUTSIDE LAB (SEE SCANNED REPORT) HEMOGLOBIN, E5C-QNACKPG LAB OUTSIDE LAB (SEE SCANNED REPORT) PHOSPHORUS-OUTSID E LAB OUTSIDE LAB (SEE SCANNED REPORT) PTH-OUTSIDE LAB OUTS ERASTO LAB (SEE SCANNED REPORT) MICROALBUMIN RATIO-OUTSIDE LAB OUTSIDE LA B (SEE SCANNED REPORT) PROTEIN, UA-OUTSIDE LAB OUTSIDE LAB (SEE SCANNED REPORT) HGB 14.1 12.0 - 16.0 G/DL OUTSIDE LAB (SEE SCANNED REPORT) 05/30/2023 Clifford Falk DO LABORATORY OUTSIDE LAB (SEE SCANNED REPORT) documented in this encounter Care Teams Ambulatory Analyst Relationship Specialty Start Date End Date Misa Castanon MD [address] [place] [phone] PCP - General Family Medicine 04/05/23 documented as of this encounter
--- OUTSIDE RECORDS SUMMARY | 2023-06-21 08:59 | External Medical Summary | Summary of Care ---
Author Name Unknown Organization [facility] Address [address] [facility] [place] [address] Phone [phone] Care Team Providers Care Home Health Clinical Liaison Name Role Phone Misa Castanon MD Primary Care Provi [facility] Encounter Details Date Type Department Care Team (Late st Contact Info) Description 06/11/2023 Orders Only PATIENT PORTAL DO NOT DELETE THIS DEPT USED BY MICHELLE RALPH [id number] Allergies Active Allergy Reactions Criticality Noted Date Comments Amoxicillin 06/23/2006 Rash Erythromycin 06/23/2006 documented as of this encounter (statuses as of 06/11/2023) Medications Medication Sig Dispensed Refills Start Date [...] as of this encounter (statuses as of 06/11/2023) Active Problems Problem Noted Date Diagnosed Date Myelomalacia of cervical cord 04/13/2023 Cervical radiculopathy 04/13/2023 History of nephrolithiasis 02/22/2023 DDD (degenerative disc disease), cervical 2022 Lumbar degenerative disc disease 02/22/2023 Gastroparesis 02/22/2023 Dyslipidemia, goal LDL below 100 02/18/2014 HTN, goal below 140/90 07/14/2010 Migraine with aura 10/22/2008 documented as of this encounter (statuses as of 06/11/2023) Resolved Problems Problem Noted Date Diagnosed Date Resolved Date Palpitations 08/17/2010 02/22/2023 Gastritis and gastroduodenitis 10/08/2008 02/22/2023 Atrial fibrillation 02/19/20 14 documented as of this encounter (statuses as of 06/11/2023) Immunizations Name Administration Dates Next Due Pneumococcal [...] Upcoming Encounters Date Type Department Care Team ([facility] Contact Info) Description 07/13/2023 8:00 AM EDT Office Visit Family [address] [phone] Misa Castanon MD [address] [place] [phone] Health Maintenance Due Date Last Done [...] filedocumented as of this encounter Care Teams Home Health Clinical Liaison Relationship Specialty Start Date End Date Misa Castnaon MD [address] [place] [address] [place] [phone] PCP - General Family Medicine 04/05/23 documented as of this encounter
--- OUTSIDE RECORDS SUMMARY | 2023-06-21 08:59 | External Medical Summary | Summary of Care ---
Author Name Unknown Organization [facility] Address [address] [place] [address] Phone [phone] Care Team Providers Care Laborer [employer] Name Role Phone Misa Castanon MD Primary Care Provi tanya Encounter Details Date Type Department Care Team ([facility] st Contact Info) Description 06/13/2023 Orders Only Family Practice [facility] [address] [place] [phone] Misa Castanon MD [address] [place] [phone] Allergies Active Allergy Reactions Criticality [...] 07/13/2023 8:00 AM EDT Office Visit Family [address] [phone] Misa Castanon MD [address] [place] [phone] Health Maintenance Due Date Last Done [...] Procedure Name Priority Date/Time Associated Diagnosis Comments XR CHEST 2 VIEWS Routine 05/30/2023 documented in this encounter Results * XR CHEST 2 VIEWS (05/30/2023) Anatomical Region Laterality Modality Chest Other 05/30/2023 Clifford Falk DO RADIOLOGY ( RAD GENERAL) documented in this encounter Care Teams Laborer [employer] Relationship Specialty Start Date End Date Misa Castanon MD [address] [place] [phone] PCP - General Family Medicine 04/05/23 documented as of this encounter
--- OUTSIDE RECORDS SUMMARY | 2023-06-21 08:59 | External Medical Summary | Summary of Care ---
Author Name Unknown Organization [facility] Address [address] [place] [address] Phone [phone] Care Team Providers Care Systems Trainer Name Role Phone Misa Castanon MD Primary Care Provi tanya Reason for Visit * Reason Comments Pre-Op Testing Patient is here toda y for pre-op clearance for spine surgery with Dr. Marshall Falk ([facility]) on 06/21/2023. Patient says she already had lab work and EKG done at her pre-op for [facility]. Encounter Details Date Type Department Care Team (Late st Contact Info) Description 06/10/2023 8:40 AM EDT Office Visit [address] [phone] Misa Castanon MD [address] [place] [phone] Preop examination*; DDD (degenerative disc disease), [...] fusion C5/6 and C6/7 on 06/21/23 with [facility]. BP is well controlled on current meds. Quit smoking 3 weeks ago. Had labs, EKG, chest xray done at [facility] through [facility] Medical History Problem [...] EKG by my review is significant for: unable to review Surgical Risk Scoring Revised Cardiac Risk Index [...] Preop examination Cleared to proceed with surgery pending review of EKG. Waiting for fax from [facility] DDD (degenerative disc disease), cervical Cervical radiculopathy [...] for spine surgery with Dr. Marshall Falk ([facility]) on 06/21/2023. Patient says she already had lab work and EKG done at her pre-op for [facility]. Patient has been verbally educated on the need or importance of Colon Cancer Screening and Immunizations: tdap, hep B, pneumo, shingles and has declined topic(s) due to upcoming surgery. documented in this encounter Plan of Treatment Upcoming Encounters Date Type Department Care Team ([facility] Contact Info) Description 07/13/2023 8:00 AM EDT Office Visit [address] [phone] Misa Castanon MD [address] [place] [phone] Health Maintenance Due Date Last Done [...] Cancer Screening 12/28/2020 COVID-19 Vaccine ( - 2022- season) 2022 Influenza Vaccine (FLU shot) (#1) [...] hypertension documented in this encounter Care Teams Systems Trainer Relationship Specialty Start Date End Date Misa Castanon MD [address] [place] [phone] PCP - General Family Medicine 04/05/23 documented as of this encounter
[2023-06-21] MEDS: FLOSEAL HEMOSTATIC MATRIX 10ML TOP ONE (09:03)
--- NOTE | 2023-06-21 09:16 | Operative Report ---
Post Operative Report Pre & Post Diagnosis Operation Date: 06/21/23 07:45 Pre-Op Diagnosis: Spinal Stenosis of Cervical Region with Radiculopathy Post-Op Diagnosis: Spinal Stenosis of Cervical Region with Radiculopathy I identified the patient and participated in the time-out.: Yes Procedure Operation Date: 06/21/23 07:45 Actual Procedures #1 anterior cervical discectomy with bilateral foraminotomies C5-C6 C6-C7. #2 anterior cervical arthrodesis C5-C6 C6-C7. #3 placement of Spira 7 mm cage C5- C6 and 8 mm cage C6-C7 both filled with I factor. #4 application of K2 M plate and screws from C5-C7. Surgeon Clifford Falk, Manager Test Amirah Leigh Estimated Blood Loss 10 Findings Consistent with Post-Op Diagnosis Specimens None Indications This is a 49-year-old female presents above-mentioned diagnosis of failed course of nonoperative care is here for surgical invention. Description of Procedure Patient was met with identified informed consent obtained. Patient was then taken to the operative suite underwent patient placed in spine position the Roman table head Villanueva head loft worker. All bony promises well-padded eyes inspected to ensure no external pressure placed upon them. This point the anterior cervical spine was prepped and draped in a sterile fashion. The assistance of fluoroscopy identified the C6 vertebral body and a transverse incision was placed along the right anterior aspect of the cervical spine overlying this region. Blunt dissection with the assistance of bipolar Cardizem form down to and exposing the anterior cervical spine from C5-C7. A self- retaining retractors placed. Then performed a complete discectomy of C5-C6 out to the uncovertebral joints bilaterally. Modale distraction pins utilized to assist in visualization. Removed all posterior annular fibers longitudinal ligament bilateral foraminotomies performed. Endplates burred to subcortical bleeding bone and a 7 mm Spira cage filled with I factor tapped the position. Distracting apparatus was removed and I approach to c 6 C7. Again complete discectomy performed out to the uncovertebral's bilaterally. I removed all posterior annular fibers longitudinal ligament bilateral foraminotomies were performed as well as addressing large fragment of disc material in the foramina on the left. Endplates were then burred to subcortical bleeding bone and 8 mm Spira cage with I factor tapped in position. Distracting apparatus was removed and all anterior osteophytes burred to a smooth cortical surface. A K2 M plate and screws applied with the assistance of fluoroscopy. The incision was then copiously irrigated explored to ensure no damage to surrounding structures remaining bleeding. 10 round JESSICA drain inserted. The incision was then closed with 2 Vicryl in a fashion of 4 Monocryl for final closure. Steri-Strips sterile dressings placed. Patient waken taken to PACU in stable condition. Please note spinal cord monitoring visualized at the procedure no changes noted. Lastly Amirah Leigh was present at the entire surgery while the patient posit ioning complex portions of the surgery and final skin closure. I attest to the content of the Intraoperative Record and any orders documented therein. Any exceptions are noted below.
--- NOTE | 2023-06-21 09:53 | Fluoroscopy Report ---
FL cervical 2-3V CLINICAL HISTORY: C5-C6 and C6-C7 ACDF COMPARISON STUDY: MRI of the cervical spine November 28, 2020. FLUOROSCOPY TIME: 16 seconds. Ka, r: 1.21 mGy FLUOROSCOPIC IMAGES: 2 FINDINGS: Exact localization is difficult given partial visualization of these are benign. However, f luoroscopy was provided for anterior discectomy and fusion, likely at the C5-C7 levels. The hardware is intact. Surgical drain is in place. Endotracheal tube is noted. IMPRESSION: Fluoroscopy provided during C5-C7 anterior discectomy and fusion. ACT 112: Negative or not required by law. Electronically signed by: Cristi Chavez M.D. 06/21/2023 9:51 AM
[2023-06-21] MEDS: fentaNYL citrate PF 100 MCG/2 ML VIAL IV PRN (09:55)
[2023-06-21] MEDS: HYDROmorphone INJ 1 MG/ML SYRINGE IV PRN (10:20)
[2023-06-21] MEDS ORDERED: SUMAtriptan succinate 100 MG TAB PO PRN (11:07)
[2023-06-21] MEDS ORDERED: RACEPINEPHRINE 2.25% NEBU SOLN 0.5 ML VIAL INH PRN (11:07)
[2023-06-21] MEDS ORDERED: PROMETHAZINE HCL 12.5 MG in SODIUM CHLORIDE 0.9% 50 ML IV PRN (11:07)
[2023-06-21] MEDS ORDERED: traMADol HCL 50 MG TABLET PO PRN (11:07)
[2023-06-21] MEDS ORDERED: ACETAMINOPHEN 500 MG TAB PO PRN (11:07)
[2023-06-21] MEDS ORDERED: DO NOT ADMINISTER PNEUMOCOCCAL VACCINE PRN (11:07)
[2023-06-21] MEDS ORDERED: hydrOXYzine HCl 25 MG TAB PO PRN (11:07)
[2023-06-21] MEDS ORDERED: SOD PHOSPHATE/SOD BIPHOSPHATE ENEMA 132 ML BTL PR PRN (11:07)
[2023-06-21] MEDS ORDERED: diphenhydrAMINE Capsule 25 MG CAP PO PRN (11:07)
[2023-06-21] MEDS ORDERED: NALOXONE HCL 0.4 MG/1 ML VIAL/CARP IV PRN (11:07)
[2023-06-21] MEDS ORDERED: dexAMETHasone 8 MG in SYRINGE 0 ML IV PRN (11:07)
[2023-06-21] MEDS ORDERED: LORazepam 0.5 MG in SYRINGE 0.25 ML IV PRN (11:07)
[2023-06-21] MEDS ORDERED: DO NOT ADMINISTER FLU VACCINE PRN (11:07)
[2023-06-21] MEDS ORDERED: FAMOTIDINE 20 MG TAB PO PRN (11:07)
[2023-06-21] MEDS ORDERED: bisacodyL 10 MG SUPP PR PRN (11:07)
[2023-06-21] MEDS ORDERED: ONDANSETRON 4 MG OD TAB PO PRN (11:07)
[2023-06-21] MEDS ORDERED: HYDROmorphone INJ 0.5 MG/0.5 ML SYR IV PRN (11:07)
[2023-06-21] MEDS ORDERED: MAGNESIUM HYDROXIDE SUSP 30 ML UDC PO PRN (11:07)
[2023-06-21] MEDS ORDERED: HYDROmorphone INJ 1 MG/ML SYRINGE IV PRN (11:07)
[2023-06-21] MEDS ORDERED: ACETAMINOPHEN 1,000 MG/100 ML VIAL IV PRN (11:07)
[2023-06-21] MEDS ORDERED: LORazepam 0.5 MG TAB PO PRN (11:07)
[2023-06-21] MEDS: ONDANSETRON INJ 2 MG/ML 2 ML VIAL IV PRN (12:11)
[2023-06-21] MEDS: LACTATED RINGER'S 1,000 ML IV SCH (12:17)
[2023-06-21] MEDS: oxyCODONE HCL IR 5 MG TAB (IMMEDIATE RELEASE) PO PRN (12:25)
--- NOTE | 2023-06-21 14:00 | Hospitalist Consultation ---
Date of Consultation June 21, 2023 Assessment & Plan (1) Cervical radiculopathy: S/p cervical spine surgery with Dr. Falk on 06/21/23 Cervical spine x-ray revealed hardware intact Perioperative antibiotics, pain control, fluid management, and DVT PPx per the primary team Activity as tolerated Will hold off on PT/OT for now Added on a.m. CBC, BMP; we will follow (2) Hypertension: Patient has been mildly hypertensive postop Can restart metoprolol and amlodipine Plan Agree with medical decision making: Disposition: MedSurg Clear liquid diet advance as tolerated VTE PPx: SCDs/teds Thank you for allowing us to participate in the care of this patient, please reach out with any questions or concerns; we will continue to follow. Supervising Physician Co-Signing Physician Notes I personally saw and examined the patient. I independently reviewed the labs, problem list, medication list, past medical history and family history. I verified all shultz points and agree with Trev Gilman PA-C with the following exceptions and/or additions: No changes to above History of Present Illness Reason for Consultation: Medical management Requesting Physician: Clifford Falk DO Attending Physician: Clifford Falk DO History of Present Illness Sherry is a pleasant 57-year-old female with PMH of HTN, dyslipidemia, gastroparesis, and tinnitus. She presented for cervical spine surgery with Dr. Clifford Falk on 06/21/2023. Full procedure performed: "#1 anterior cervical discectomy with bilateral foraminotomies C5-C6 C6-C7. #2 anterior cervical arthrodesis C5-C6 C6-C7. #3 placement of Spira 7 mm cage C5-C6 and 8 mm cage C6-C7 both filled with I factor. #4 application of K2 M plate and screws from C5-C7." Per review of operative note, EBL was listed as 10 cc. Patient's vitals have been stable postop. Patient endorses 5/10 bilateral shoulder pain at time of consult. She describes it as a "toothache" like pain that is constant. Worse with repositioning. No radiation down the spine. She does not use supplemental oxygen at home. She reports that she did not take any of her regular morning medications today, as she was told to hold her blood pressure medication such as metoprolol and amlodipine. No supplemental oxygen at home. She has been eating and drinking okay. Patient is a former tobacco cigarette sm oker; quit 1 month ago in anticipation of surgery; previously 0.5 PPD. She denies recent alcohol use. Patient has no new complaints at time of consult. ROS: Patient endorses sore throat, neck pain, bilateral shoulder pain, some numbness and tingling in the tips of the left fingers, nausea with movement, and 1 episode of cough with bloody sputum. Patient denies fever, chills, sweating, dizziness, lightheadedness, headache, changes in vision, chest pain, pleuritic CP, abdominal pain, vomiting, urinary symptoms, or numbness/tingling in the legs. Allergies Allergy/AdvReac Type Severity Reaction Status Date / Time erythromycin base Allergy Intermediate Rash Verified 06/21/23 05:36 Macrolide Antibiotics Allergy Mild GI upset Verified 06/21/23 05:36 amoxicillin Allergy Unknown Rash Verified 06/21/23 05:36 clarithromycin AdvReac Unknown GI symptoms Verified 06/21/23 05:36 Home Medications Medication Instructions Recorded Confirmed Type sumatriptan succinate 100 mg tablet 100 mg PO .COMPLEX #60 tabs 12/16/22 06/21/23 Rx tamsulosin 0.4 mg capsule (Flomax) 0.4 mg PO DAILY PRN kidney stone 12/16/22 06/21/23 Rx #30 caps amitriptyline 25 mg tablet 25 mg PO HS #90 tabs 02/15/23 06/21/23 Rx cyclobenzaprine 5 mg tablet 5 mg PO TID PRN muscle spasm #60 02/15/23 06/21/23 Rx tabs diclofenac potassium 50 mg tablet 50 mg PO BID PRN pain #60 tabs 02/15/23 06/21/23 Rx metoprolol tartrate 25 mg tablet 25 mg PO BID #180 tabs 02/15/23 06/21/23 Rx metoprolol tartrate 50 mg tablet 50 mg PO BID #180 tabs 02/15/23 06/21/23 Rx amlodipine 5 mg tablet 5 mg PO QAM 05/24/23 06/21/23 History atorvastatin 40 mg tablet 20 mg PO QAM 05/24/23 06/21/23 History gabapentin 300 mg capsule 300 mg PO TID 05/24/23 06/21/23 History oxycodone 5 mg tablet 5 mg PO Q6H PRN pain #20 tabs 06/22/23 Rx tramadol 50 mg tablet 50 mg PO Q6H PRN pain, moderate 06/22/23 Rx #20 tabs Patient History Medical History DDD (degenerative disc disease), cervical Osteoarthritis History of kidney stones Tinnitus History of migraine History of atrial fibrillation Episode 15+ years ago > unremarkable subsequent cardiac workup including stress test per patient, cardiology initiated/rec'd BB (AC not rec'd) and advised to f/u PRN per patient. No known recurrences/issues since. NSR on preop ECG 05/30/23. Dyslipidemia Gastroparesis Hypertension Surgical History History of D&C History of esophagogastroduodenoscopy (EGD) History of colonoscopy History of wisdom tooth extraction History of total abdominal hysterectomy and bilateral salpingo-oophorectomy H/O wrist surgery Right H/O shoulder surgery Right History of mandibular surgery Hx TMJ Family History Father Diabetes Myocardial infarction COPD (chronic obstructive pulmonary disease) Hypertension Aunt Breast cancer Grandmother (Paternal) Diabetes Grandfather (Paternal) Diabetes Mother Hypercholesteremia Sister Non-Hodgkin lymphoma Slow to wake up after anesthesia Denies family history of Ovarian cancer Prostate cancer Colorectal cancer Social History Smoking Status: Current some day smoker Tobacco Type: Cigarettes Age Started Using Tobacco: 22; Smoking End Date: Quit early 05/2023, Hx tobacco use x 30+ years; Second Hand Exposure: Yes; Do You Dip or Chew Tobacco: No; Tobacco Cessation Education Requested by Patient: No Hx Alcohol Use: No (RARE intake. ) Hx Substance Use: No Preferred Language: Slovak Communication Ability: Effective Visual Impairment: No Limitations Hearing Ability: Normal Air Conditioning Mechanic Required: No Beliefs That Will Affect Care: None marital status: Current Living Situation: Alone current occupational status: employed current occupation: DME supplier. How many Children do You have: 3 How many Children do You have Comment: ONE CHILD Feels Safe at Home: Yes Safety Concerns: Feels Safe At This Time Childhood Exposure to Second-Hand Smoke: No Diet: regular Diet Comment: regular caffeine: Yes (coffee x 1 per day.) during the past year weight has: remained stable Dental Care, Regularly: Yes Physical Activity Frequency: Daily Seatbelt Use: always Sunscreen Use: Yes Assistive Devices: None Review of Systems Review of Systems: See HPI above Physical Exam Physical Exam: General: Mild physical distress secondary to shoulder pain; pleasant affect; non-toxic appearing; C-spine collar in place; well-nourished; cooperative HEENT: normocephalic, atraumatic; no scleral icterus; PERRLA; moist mucus membrane; vision and hearing grossly intact Neck: supple; trachea midline; surgical site without signs of drainage, active bleeding, or infection; patient demonstrates ability to shrug shoulders against resistance with minimal pain Skin: warm, dry without signs of tenting; no cyanosis; no rashes, bruising, lesions, or erythema noted CV: chest wall NTP; RRR; S1/S2 normal; no murmurs/rubs/gallops; pulses intact and symmetric at radial, DP, and PT Lungs: no acute respiratory distress; symmetrical chest wall expansion; clear breath sounds across all lung velasquez w/o adventitious sounds; no wheezing ABD: Soft, NTP; BS present MSK: no tics or fasciculations; no edema noted in the LEs b/l, nonerythematous; 5/5 people manager strength bilaterally; patient demonstrates ability to wiggle toes Neuro: A&Ox3; normal mood and affect; fluent speech; no focal deficits; sensation grossly intact in the shoulder/UEs/LEs b/l Results & Data Results & Data Vital Signs (Past 12 Hours) Vital Signs Temp Pulse Pulse Resp BP Pulse Ox O2 Del Method 06/21/23 13:48 97 H 16 96 Room Air 06/21/23 13:17 36.4 C L 98 H 18 127/81 95 Room Air 06/21/23 12:20 36.5 C 92 H 18 135/78 97 Room Air 06/21/23 11:53 36.4 C L 93 H 18 119/83 97 Room Air 06/21/23 11:14 36.4 C L 76 16 133/90 97 Room Air 06/21/23 10:45 79 12 143/91 H 96 Nasal Cannula 06/21/23 10:35 79 10 L 136/87 95 Nasal Cannula 06/21/23 10:25 84 16 113/70 98 Room Air 06/21/23 10:15 86 15 125/95 96 Room Air 06/21/23 10:05 79 14 136/93 94 Room Air 06/21/23 09:55 90 14 148/98 H 93 Room Air 06/21/23 09:45 91 H 11 L 158/95 H 100 Oxymask 06/21/23 09:35 93 H 11 L 117/86 96 Oxymask 06/21/23 09:26 36.0 C L 97 H 10 L 110/77 96 Oxymask 06/21/23 05:42 36.7 C 80 20 147/95 H 95 Room Air O2 Flow Rate 06/21/23 13:48 06/21/23 13:17 06/21/23 12:20 06/21/23 11:53 06/21/23 11:14 06/21/23 10:45 3 06/21/23 10:35 3 06/21/23 10:25 06/21/23 10:15 06/21/23 10:05 06/21/23 09:55 06/21/23 09:45 5 06/21/23 09:35 10 06/21/23 09:26 10 06/21/23 05:42 Diagnostic Findings Cervical Spine X-Ray 06/21/23 07:00 FL cervical 2-3V CLINICAL HISTORY: C5-C6 and C6-C7 ACDF COMPARISON STUDY: MRI of the cervical spine November 28, 2020. FLUOROSCOPY TIME: 16 seconds. Ka, r: 1.21 mGy FLUOROSCOPIC IMAGES: 2 FINDINGS: Exact localization is difficult given partial visualization of these are benign. However, fluoroscopy was provided for anterior discectomy and fusion, likely at the C5-C7 levels. The hardware is intact. Surgical drain is in place. Endotracheal tube is noted. IMPRESSION: Fluoroscopy provided during C5-C7 anterior discectomy and fusion. ACT 112: Negative or not required by law. Electronically signed by: Cristi Chavez M.D. 06/21/2023 9:51 AM PG Care Time/CCT Total # of Minutes Spent Total Time Spent with Patient: Total time spent is greater than 50% in coordination of care (as documented) at patient's floor/unit and/or counseling patient: C[place] [address] IN/OBS CONSULT LVL 3,45M Patient Type Established Medical Decision Making Low Complexity Diagnoses Cervical radiculopathy M54.12 Hypertension I10
[2023-06-21] MEDS: GABAPENTIN 300 MG CAP PO SCH (14:24)
[2023-06-21] MEDS: METOCLOPRAMIDE HCL INJ 5 MG/ML 2 ML VIAL IV PRN (15:01)
--- NOTE | 2023-06-21 15:32 | Anesthesiology Progress Note ---
Date of Service June 21, 2023 Anesthesia Post Procedure Vital Signs Vital Signs: Temp Pulse Pulse Resp BP Pulse Ox O2 Del Method 06/21/23 14:59 92 H 17 99 Room Air 06/21/23 14:23 36.4 C L 77 18 151/92 H 95 Room Air 06/21/23 13:48 97 H 16 96 Room Air 06/21/23 13:17 36.4 C L 98 H 18 127/81 95 Room Air 06/21/23 12:20 36.5 C 92 H 18 135/78 97 Room Air 06/21/23 11:53 36.4 C L 93 H 18 119/83 97 Room Air 06/21/23 11:14 36.4 C L 76 16 133/90 97 Room Air 06/21/23 10:45 79 12 143/91 H 96 Nasal Cannula 06/21/23 10:35 79 10 L 136/87 95 Nasal Cannula 06/21/23 10:25 84 16 113/70 98 Room Air 06/21/23 10:15 86 15 125/95 96 Room Air 06/21/23 10:05 79 14 136/93 94 Room Air 06/21/23 09:55 90 14 148/98 H 93 Room Air 06/21/23 09:45 91 H 11 L 158/95 H 100 Oxymask 06/21/23 09:35 93 H 11 L 117/86 96 Oxymask 06/21/23 09:26 36.0 C L 97 H 10 L 110/77 96 Oxymask 06/21/23 05:42 36.7 C 80 20 147/95 H 95 Room Air O2 Flow Rate 06/21/23 14:59 06/21/23 14:23 06/21/23 13:48 06/21/23 13:17 06/21/23 12:20 06/21/23 11:53 06/21/23 11:14 06/21/23 10:45 3 06/21/23 10:35 3 06/21/23 10:25 06/21/23 10:15 06/21/23 10:05 06/21/23 09:55 06/21/23 09:45 5 06/21/23 09:35 10 06/21/23 09:26 10 06/21/23 05:42 Pain Intensity Neck: Pain Intensity: 6 Transfer of Care Handoff Completed per policy Notes Mental Status: alert / awake / arousable and participated in evaluation Patient Amnestic to Procedure: Yes Nausea / Vomiting: adequately controlled Pain: adequately controlled Airway Patency, RR, SpO2: stable & adequate BP & HR: stable & adequate Hydration State: stable & adequate Anesthetic Complications: no major complications apparent and Pt Satisfied with anesthetic care
[2023-06-21] MEDS: CLINDAMYCIN/D5W 600 MG/50 ML BAG IV SCH (15:53)
[2023-06-21] MEDS: DOCUSATE SODIUM/SENNA 50/8.6MG TAB PO SCH (20:18)
[2023-06-21] MEDS: METOPROLOL TARTRATE 25 MG TAB PO SCH (20:19)
[2023-06-21] MEDS: AMITRIPTYLINE HCL 25 MG TAB PO SCH (20:20)
[2023-06-21] MEDS: METOPROLOL TARTRATE 50 MG TAB PO SCH (20:20)
[2023-06-21] MEDS ORDERED: AMITRIPTYLINE HCL 25 MG TAB PO PRN (21:02)
[2023-06-22] MEDS: ALUMINUM/MAGNESIUM SUSP 30 ML UDC PO PRN (02:15)
[2023-06-22] MEDS: POLYETHYLENE (MIRALAX) 17 GM PACK PO SCH (05:16)
[2023-06-22 05:59] LABS: Basophils # (auto) 0.01 K/uL (0.00-0.20); Basophils % (auto) 0.1 %; Hematocrit (blood only) 40.1 % (37.0-47.0); Hemoglobin 13.3 g/dl (12.0-16.0); Immature Granulocytes # (auto) 0.04 K/uL (0.01-0.20); Immature Granulocytes % (auto) 0.4 %; Lymphocytes # (auto) 1.29 K/uL (1.20-3.40); Lymphocytes % (auto) 12.9 %; Mean Corpuscular Hemoglobin 30.2 pg (25.0-34.0); Mean Corpuscular Hgb Conc 33.2 g/dL (32.0-36.0); Mean Corpuscular Volume 91.1 fL (80.0-100.0); Mean Platelet Volume 9.3 fL (9.4-12.4); Monocytes # (auto) 0.54 K/uL (0.11-0.59); Monocytes % (auto) 5.4 %; Neutrophils # (auto) 8.15 K/uL (1.40-6.50); Neutrophils % (auto) 81.2 %; Platelet Count 230 K/uL (130-400); RDW Coefficient of Variation 12.7 % (11.5-14.5); RDW Standard Deviation 42.3 fL (36.4-46.3); White Blood Count 10.03 K/ul (4.8-10.8)
[2023-06-22 06:14] LABS: BUN Creatinine Ratio 11.4 (10-20); Calcium 9.3 mg/dl (8.6-10.3); Creatinine Clr Calc Pharmacy 95.9 ml/min; Est GFR (African American) 110.7 ml/min; Est GFR (Non-African American) 95.5 ml/min; Potassium 4.3 mmol/L (3.5-5.1)
[2023-06-22] MEDS: dexAMETHasone 6 MG in SYRINGE 0 ML IV SCH (08:55)
[2023-06-22] MEDS: amLODIPine BESYLATE 5 MG TAB PO SCH (08:59)
[2023-06-22] MEDS: ATORVASTATIN 20 MG TAB PO SCH (08:59)
--- NOTE | 2023-06-22 10:10 | Discharge Summary ---
Date of Service June 22, 2023 Admission HPI Per Admitting Provider This is a 57-year-old female presents chronic system Pain of failed course of nonoperative care is here for surgical invention. Principal Diagnosis Cervical spinal stenosis with radiculopathy Discharge Data Allergies Allergy/AdvReac Type Severity Reaction Status Date / Time erythromycin base Allergy Intermediate Rash Verified 06/21/23 05:36 Macrolide Antibiotics Allergy Mild GI upset Verified 06/21/23 05:36 amoxicillin Allergy Unknown Rash Verified 06/21/23 05:36 clarithromycin AdvReac Unknown GI symptoms Verified 06/21/23 05:36 Consultations 06/21/23 11:07 Consult Hospitalist Routine Procedures Performed Operation Date: 06/21/23 07:45 Actual Procedures p C5-C6 and C6-C7 Anterior Cervical Discectomy and Fusion, Spinal Cord Monitoring(Not Applicable) - Clifford Falk DO Ordered Studies 06/21/23 07:00 FL cervical 2-3V Routine Hospital Course (1) Cervical radiculopathy: Patient underwent anterior cervical discectomy and fusion tolerated this well was taken to the orthopedic floor postoperative. Postoperative day #1 she is swallowing well. No hoarseness. JESSICA drain decreased reportedly. Excellent strength testing. Subsidy discharged home. Discharge orders instructions from the chart for further review. Total Time Total Time Spent Total Time Spent (In Minutes): 20 minutes Discharge Plan Discharge Items Patient Disposition: Home - Self-Care Reason For Visit: Spinal Stenosis of Cervical Region with Radiculopa Discharge Diagnosis: Cervical spinal stenosis with radiculopathy Activity: As commented below Non-emergency contact: Primary Care Provider Call non-emergency contact if: you have any medication questions Follow-up/Referrals: Krista Marcum DO [Primary Care Provider] - Diet: Regular Addtl Attending Provider Instructions: ACTIVITY RECOMMENDATIONS: SELF CARE INSTRUCTIONS AFTER CERVICAL FUSIONS 1. No smoking. Smoking drastically decreases the chance of a solid fusion. 2. No bending, lifting more than 5 pounds, or twisting (roll like a log when turning in bed). 3. You may shower 3 days after surgery. Thoroughly dry wound. Do not soak in the tub. 4. Cervical collar: Must be worn at all times including sleeping. You may remove the brace only to bath, eat and if you are sitting in a recliner. 5. Please walk as much as you can for exercise. Gradually increase the distance that you walk as your endurance increases. SPECIAL CARE INSTRUCTIONS: VERY IMPORTANT TO READ AND REVIEW A. Do not take any anti-inflammatory medications (i.e. Indocin, Advil, Aspirin, Naprosyn, Aleve, Motrin, etc.) as these may inhibit the chance of a solid fusion. Tylenol is okay to take. B. Your surgical incision has been closed with a cosmetic suture under the skin that will dissolve in about 6 weeks. In 14 days, you can use a pair of clean scissors and cut the suture that is left outside of the skin at the ends of your incision. C. Complications are uncommon, but please contact us if you have any signs or symptoms of: 1. wound infection (fever higher than 102.5 degrees F, redness, separation of wound, drainage, or increasing pain from the incision) 2. blood clots in legs (pain, swelling, redness and warmth in legs) 3. urinary tract infection (fever higher than 102.5 degrees, burning upon urination or increased frequency of urination) 4. nerve problems (inability to walk on your toes or heels, numbness, loss of bowel or bladder control) 5. any other symptoms that concern you. D. Please call the office at if you have any concerns or questions about your operation or recovery. MANAGING PAIN AFTER SPINAL SURGERY 1. Narcotic medication is intended for short-term use and will be provided for surgical pain. Surgical pain usually lasts for a period of 4-6 weeks. Narcotic medication includes Percocet, Vicodin, Darvocet, Tylenol #3 or Lortab. 2. Longer-term pain is more appropriately treated with non-narcotic medication such as Tylenol ES. 3. Muscle spasm is not appropriately treated with narcotics. Muscle relaxers such as Soma, Flexeril or Skelaxin can be used along with Tylenol ES. 4. Remember that we all live with some "aches and pains". This is not unusual or uncommon after an injury or as we get older. 5. We will provide appropriate medication within the normal guidelines of their prescribed use. We will also be very cautious and aware of potential abuse and extended duration of patients' medication needs. 6. Please allow 2-3 days to process refills. Prescriptions will not be mailed but must be picked up at the office. FOLLOW UP VISIT: Keep your scheduled follow-up appointment. Any questions, please call the office at . Pending Studies at Discharge: No Stand-Alone Forms: [facility], Smoking Cessation Medications and DC Order Prescriptions: New tramadol 50 mg tablet 50 mg PO Q6H PRN (Reason: pain, moderate) Qty: 20 0RF oxycodone 5 mg tablet 5 mg PO Q6H PRN (Reason: pain) Qty: 20 0RF Continued amitriptyline 25 mg tablet 25 mg PO HS Qty: 90 2RF cyclobenzaprine 5 mg tablet 5 mg PO TID PRN (Reason: muscle spasm) Qty: 60 0RF diclofenac potassium 50 mg tablet 50 mg PO BID PRN (Reason: pain) Qty: 60 4RF metoprolol tartrate 50 mg tablet 50 mg PO BID Qty: 180 3RF metoprolol tartrate 25 mg tablet 25 mg PO BID Qty: 180 1RF tamsulosin [Flomax] 0.4 mg capsule 0.4 mg PO DAILY PRN (Reason: kidney stone) Qty: 30 1RF sumatriptan succinate 100 mg tablet 100 mg PO .COMPLEX Qty: 60 0RF Rx Instructions: 100 mg PO Take one tablet at onset of migraine. may repeat in 2 hours if needed. ; atorvastatin 40 mg tablet 20 mg PO QAM amlodipine 5 mg tablet 5 mg PO QAM gabapentin 300 mg Capsule 300 mg PO TID Patient Comments: does not always use TID Discharge Orders: Discharge Order (Routine); Ordered 06/22/23 Ordered By: Clifford Falk Admission Data Admit Date/Time: 06/21/23 09:19 Attending Provider: Clifford Falk Admit Provider: Clifford Falk Primary Care Provider: Krista Marcum. Other Providers: Rashad Quezada
[2023-06-22] MEDS: BENZOCAINE/MENTHOL 18 LOZ/1 BOX MT PRN (10:50)
== END 2023-06-22 14:13 | disposition home or self-care (01) ==
LOC: 3E 05:09 → ASU 05:09
DX: M25.78 Osteophyte, vertebrae; M48.02 Spinal stenosis, cervical region; M50.122 Cervical disc disorder at C5-C6 level with radiculopathy; I10 Essential (primary) hypertension; Z79.899 Other long term (current) drug therapy; Z88.0 Allergy status to penicillin; Z88.1 Allergy status to other antibiotic agents; E78.5 Hyperlipidemia, unspecified; F17.210 Nicotine dependence, cigarettes, uncomplicated; K31.84 Gastroparesis